=== PATIENT | female | born 1950 | race Caucasian/White ===

== ENCOUNTER 2018-02-26 11:20 | Emergency (ER) | payer MEDICARE, OTHER ==
--- NOTE | 2018-02-26 11:25 | EDM.PDOC ---
ED HPI GENERAL MEDICAL PROBLEM - General Chief Complaint: Cardiovascular Problem Stated Complaint: BLOOD PRESSURE LOW PER [facility] [id number] Time Seen by Provider: 02/26/18 11:25 Source of Information: Reports: Patient, Old Records, RN, RN Notes Reviewed History Limitations: Reports: No Limitations - History of Present Illness INITIAL COMMENTS - FREE TEXT/NARRATIVE: Pt sent from [facility] for evaluation of low blood pressure. Pt states she was at the clinic for a lab draw, EKG and tele-med. visit with Dr. Up ( urology). She states that she felt completely normal, and did not know her BP was low. She thought she was about to be released to go home, but they brought her to the ER. She denies lightheadedness or any symptoms. She admits to fatigue , but states that isn't new. Onset: Unknown/Unsure Location: Reports: Generalized Improves with: Reports: None Worsens with: Reports: None Associated Symptoms: Reports: No Other Symptoms - Related Data Allergies Allergy/AdvReac Type Severity Reaction Status Date / Time Sulfa (Sulfonamide Allergy Rash Verified 02/26/18 11:31 Antibiotics) Past Medical History Cardiovascular History: Reports: Afib, Blood Clots/VTE/DVT, High Cholesterol Genitourinary History: Reports: Renal Calculus Musculoskeletal History: Reports: Gout Social & Family History - Family History Family Medical History: Noncontributory - Tobacco Use Smoking Status *Q: Never Smoker - Alcohol Use Alcohol Use History: No - Recreational Drug Use Recreational Drug Use: No - Living Situation & Occupation Living situation: Reports: with Family Occupation: Retired ED ROS GENERAL - Review of Systems Review Of Systems: ROS reveals no pertinent complaints other than HPI. ED EXAM, GENERAL - Physical Exam Exam: See Below Exam Limited By: No Limitations General Appearance: Alert, No Apparent Distress, Obese, Other (Chronically ill appearing) Ears: Normal External Exam, Hearing Grossly Normal Nose: Normal Inspection, No Blood Throat/Mouth: Normal Inspection, Normal Lips, Normal Voice, No Airway Compromise Head: Atraumatic, Normocephalic Neck: Normal Inspection, Supple, Non-Tender, Full Range of Motion Respiratory/Chest: No Respiratory Distress, Lungs Clear, Normal Breath Sounds, No Accessory Muscle Use, Chest Non-Tender Cardiovascular: Regular Rate, Rhythm, Bradycardia GI/Abdominal: Normal Bowel Sounds, Soft, Non-Tender Back Exam: Normal Inspection Extremities: Normal Inspection Neurological: Alert, Oriented, CN II-XII Intact, Normal Cognition, No Motor/ Sensory Deficits Psychiatric: Normal Mood Skin Exam: Warm, Dry, Intact, Normal Color, No Rash Course - Vital Signs Last Recorded V/S: Last Vital Signs Temp 36.8 C 02/26/18 11:39 Pulse 53 L 02/26/18 11:39 Resp 14 02/26/18 11:39 BP 108/41 L 02/26/18 11:39 Pulse Ox 100 02/26/18 11:39 - Re-Assessments/Exams Free Text/Narrative Re-Assessment/Exam: 02/26/18 12:38 EKG from clinic within the past hour was SR, rate 50's. I called [facility] in [place], pt's BP's for the past year have been 90-132 systolic over 50's to 70 diastolic. In ER today pt's BPs have been 102 to 110 systolic over 48 to 50's diastolic. Pt has remained symptom free and feels at her usual baseline while in the ER today. Departure - Departure Time of Disposition: 12:42 Disposition: Home, Self-Care 01 Condition: Good Clinical Impression: Encounter for medical screening examination Hypotension Qualifiers: Hypotension type: unspecified hypotension type Qualified Code(s): I95.9 - Hypotension, unspecified - Discharge Information *PRESCRIPTION DRUG MONITORING PROGRAM REVIEWED*: Not Applicable *COPY OF PRESCRIPTION DRUG MONITORING REPORT IN PATIENT ANDREAS: Not Applicable Instructions: Hypotension Forms: ED Department Discharge Additional Instructions: Follow up with your doctor tomorrow for blood pressure recheck and medication management. Return to ER if you develop lightheadedness, fainting spells, chest pain, or shortness of breath.
== END 2018-02-26 13:06 | disposition home or self-care (01) ==
LOC: DL.ED 11:20
DX: I95.9 Hypotension, unspecified (principal); E78.00 Pure hypercholesterolemia, unspecified; I48.91 Unspecified atrial fibrillation; Z88.2 Allergy status to sulfonamides
CPT/HCPCS: 99285